=== PATIENT | male | born 1970 | race Caucasian/White ===

== ENCOUNTER 2025-02-19 16:01 | Observation (INO) ==
[2025-02-19] MEDS ORDERED: ULTRAM PO PRN (16:26)
[2025-02-19] MEDS ORDERED: MORPHINE SULFATE INJ 2 MG INJ IVP PRN (16:26)
[2025-02-19] MEDS ORDERED: NORCO 5/325 MG TAB PO PRN (16:26)
[2025-02-19] MEDS ORDERED: TYLENOL 325 MG TAB PO PRN (16:26)
[2025-02-19 20:52] LABS: MEAN PLATELET VOLUME 7.7 fL (7.4-11.0); RED CELL DISTRIBUTION WIDTH 13.4 % (11.6-16.5)
[2025-02-19 21:11] LABS: CREATININE 1.16 mg/dL (0.70-1.30); eGFR NON BLACK RACES > 60 (>60)
[2025-02-19] MEDS: VANCOMYCIN IV *PREMIX 1.75 G/350 ML BAG 1.75 G/350 ML PIGGYBACK IV ONE (21:54)
[2025-02-19 22:15] VITALS: BMI 25.0
[2025-02-20 05:44] LABS: MEAN PLATELET VOLUME 7.3 fL (7.4-11.0); RED CELL DISTRIBUTION WIDTH 13.4 % (11.6-16.5)
[2025-02-20 06:00] LABS: COR CA(FOR HYPOALB) 9.5 mg/dL (8.5-10.1); CREATININE 1.07 mg/dL (0.70-1.30); eGFR NON BLACK RACES > 60 (>60)
[2025-02-20] MEDS: VANCOMYCIN HCL 1 G in D5W 250 ML IV 250 ML IV SCH (10:00)
[2025-02-20] MEDS: COZAAR PO SCH (10:00)
--- NOTE | 2025-02-20 10:12 | DR.H&P ---
H&P History & Physical for Day of: H&P Date: 02/19/25 Chief Complaint Chief Complaint: right leg redness and swelling History of Present Illness History of Present Illness: Patient is a 54-year-old male with past medical history of hypertension presenting after failing outpatient treatment for cellulitis and abscess. He reports that boil appeared on his right leg on Monday and he was prescribed Bactrim and had received a Rocephin injection outpatient however symptoms did not improve. He denies fevers or chills. Reports having redness and pain on the skin with raised area that has some discharge. Labs/imaging: WBC 10.3, hemoglobin 16.8, platelets 296, sodium 139, potassium 4.2, creatinine 1.16, glucose 77. Patient was admitted with cellulitis and abscess of the right lower extremity. He was started on IV vancomycin. Wound cultures obtained. Will consult general surgery for further evaluation and likely I&D. Restart home medications. Otherwise continue with current treatment plan. Continue closely monitor and follow-up labs/imaging. Family History Family Medical History: Cancer Social History Alcohol Use: Occasionally Drug Use: None Medications Home Medications: Home Medications Medication Instructions Recorded Confirmed Type gabapentin 300 mg capsule 300 mg PO QPM 02/19/2502/19 History ibuprofen 800 mg tablet 800 mg PO Q8H PRN 02/19/25 1 04/22/24 History losartan 50 mg tablet 50 mg PO QDAY 02/19/2502/19 History Allergies Allergies Allergy/AdvReac Type Severity Reaction Status Date / Time Penicillins Allergy Verified 02/19/25 21:18 Labs 02/20/25 05:24 02/20/25 05:24 Labs: 02/19/25 20:52 Leg - Right Wound Gram Stain - Final Laboratory WBC 7.5 X10^3/uL (3.6-10.0) 02/20/25 05:24 RBC 4.64 X10^6/uL (4.7-6.0) L 02/20/25 05:24 Hgb 15.4 g/dL (13.5-18.0) 02/20/25 05:24 Hct 43.2 % (42.0-54.0) 02/20/25 05:24 MCV 93.1 fL (80.0-100.0) 02/20/25 05:24 MCH 33.2 pg (27.0-34.0) 02/20/25 05:24 MCHC 35.6 g/dL (33.0-35.0) H 02/20/25 05:24 RDW 13.4 % (11.6-16.5) 02/20/25 05:24 Plt Count 247 X10^3/uL (150.0-450.0) 02/20/25 05:24 MPV 7.3 fL (7.4-11.0) L 02/20/25 05:24 Neut % (Auto) 56.4 % (42.0-75.0) 02/20/25 05:24 Lymph % (Auto) 29.9 % (21.0-51.0) 02/20/25 05:24 [place] % (Auto) 10.4 % (0.0-13.0) 02/20/25 05:24 Eos % (Auto) 2.4 % (0.9-2.9) 02/20/25 05:24 Baso % (Auto) 0.9 % (0.2-1.0) 02/20/25 05:24 Neut # (Auto) 4.2 x10^3/uL (2.2-4.8) 02/20/25 05:24 Lymph # (Auto) 2.2 X10^3/uL (1.3-2.9) 02/20/25 05:24 [place] # (Auto) 0.8 x10^3/uL (0.3-0.8) 02/20/25 05:24 Eos # (Auto) 0.2 x10^3/uL (0.0-0.2) 02/20/25 05:24 Baso # (Auto) 0.1 X10^3/uL (0.0-0.1) 02/20/25 05:24 Absolute Nucleated RBC 0.0 /100WBC 02/20/25 05:24 Sodium 140 mmol/L (136-145) 02/20/25 05:24 Corrected Sodium TNP 02/20/25 05:24 Potassium 4.2 mmol/L (3.5-5.1) 02/20/25 05:24 Chloride 105 mmol/L (98-107) 02/20/25 05:24 Carbon Dioxide 27.6 mmol/L (21-32) 02/20/25 05:24 BUN 16 mg/dL (7-18) 02/20/25 05:24 Creatinine 1.07 mg/dL (0.70-1.30) 02/20/25 05:24 Est GFR (MDRD) Af Amer > 60 (>60) 02/20/25 05:24 Est GFR (MDRD) Non-Af > 60 (>60) 02/20/25 05:24 Glucose 93 mg/dL (65-99) 02/20/25 05:24 Calcium 8.7 mg/dL (8.5-10.1) 02/20/25 05:24 Corrected Calcium 9.5 mg/dL (8.5-10.1) 02/20/25 05:24 Total Bilirubin 0.60 mg/dL (0.2-1.0) 02/20/25 05:24 AST 23 Units/L (15-37) 02/20/25 05:24 ALT 26 Units/L (12-78) 02/20/25 05:24 Alkaline Phosphatase 71 Units/L (46-116) 02/20/25 05:24 Total Protein 6.4 g/dL (6.4-8.2) 02/20/25 05:24 Albumin 3.0 g/dL (3.4-5.0) L 02/20/25 05:24 Globulin 3.4 g/dL (2.5-4.5) 02/20/25 05:24 Albumin/Globulin Ratio 0.9 Ratio (1.1-2.1) L 02/20/25 05:24 Review of Systems Constitutional: No Symptoms Reported Eyes: No Symptoms Reported ENT: No Symptoms Reported Respiratory: No Symptoms Reported Cardiovascular: No Symptoms Reported Gastrointestinal: No Symptoms Reported Genitourinary: No Symptoms Reported Musculoskeletal: No Symptoms Reported Skin: Other (abscess RLE) Neurological: No Symptoms Reported Physical Exam Vital Signs: Vital Signs Temperature 97.7 F Temperature 97.6 F Pulse Rate [Left Radial] 61 Pulse Rate [Left Radial] 60 Respiratory Rate 18 Respiratory Rate 16 Blood Pressure [Left Arm] 117/71 Blood Pressure [Left Arm] 109/68 O2 Sat by Pulse Oximetry 96 O2 Sat by Pulse Oximetry 97 Oriented: Normal Eyes: Normal Ear: Normal Nose: Normal Throat: Normal Respiratory: Clear Throughout Cardiovascular: Normal : Normal Auscultation: Bowel Sounds: Normal Palpation: Normal Tenderness: Normal Skin: Red (abscess with surrounding erythema RLE) Musculoskeletal: Normal Psychiatric: Normal Mood Description: Calm and Appropriate Affect: Normal Speech Pattern: Clear and Appropriate Assessment/Plan (1) Cellulitis and abscess of right leg: Status: Acute Plan: consult general surgery IV antibiotics Follow wound cultures Review H&P Reviewed: Yes Patient was examined?: Yes
--- NOTE | 2025-02-20 10:15 | PCM.PROG ---
Progress Note Progress Note for Day of Date of Exam: 02/20/25 Subjective Subjective: Patient is a 54-year-old male with past medical history of hypertension admitted for cellulitis and abscess of right lower extremity after failing outpatient treatment. This morning he is resting in bed. No acute events overnight. General surgery did see him this morning and plan to perform an I&D. Labs/imaging: WBC 7.5, hemoglobin 15.4, platelets 247, sodium 140, potassium 4.2, creatinine 1.07, glucose 93. Will continue with IV vancomycin. Wound cultures pending. Follow general surgery recommendations. Home medications have been resumed. Otherwise continue with current treatment plan. Continue closely monitor and follow-up labs/imaging. Past Medical Family Social History Allergies: Allergies Penicillins Allergy (Verified 02/19/25 21:18) Review of Systems ROS changes noted: see HPI Vital Signs and I&O's Vital Signs: Vital Signs Temperature 97.7 F Temperature 97.6 F Pulse Rate [Left Radial] 61 Pulse Rate [Left Radial] 60 Respiratory Rate 18 Respiratory Rate 16 Blood Pressure [Left Arm] 117/71 Blood Pressure [Left Arm] 109/68 O2 Sat by Pulse Oximetry 96 O2 Sat by Pulse Oximetry 97 Intake and Output: Intake & Output 02/17/25 02/18/25 02/19/25 02/20/25 23:59 23:59 23:59 23:59 Intake Total 0 / 0 0 / 0 Balance 0 / 0 0 / 0 Physical Exam Oriented: Normal Eyes: Normal Ear: Normal Nose: Normal Throat: Normal Respiratory: Normal Cardiovascular: Normal : Normal Auscultation: Bowel Sounds: Normal Tenderness: Normal Skin: Red (abscess with surrounding erythema RLE) Musculoskeletal: Normal Psychiatric: Normal Mood Description: Calm and Appropriate Affect: Normal Speech Pattern: Clear and Appropriate Laboratory and Diagnostics 02/20/25 05:24 02/20/25 05:24 Labs: 02/19/25 20:52 Leg - Right Wound Gram Stain - Final Laboratory WBC 7.5 X10^3/uL (3.6-10.0) 02/20/25 05:24 RBC 4.64 X10^6/uL (4.7-6.0) L 02/20/25 05:24 Hgb 15.4 g/dL (13.5-18.0) 02/20/25 05:24 Hct 43.2 % (42.0-54.0) 02/20/25 05:24 MCV 93.1 fL (80.0-100.0) 02/20/25 05:24 MCH 33.2 pg (27.0-34.0) 02/20/25 05:24 MCHC 35.6 g/dL (33.0-35.0) H 02/20/25 05:24 RDW 13.4 % (11.6-16.5) 02/20/25 05:24 Plt Count 247 X10^3/uL (150.0-450.0) 02/20/25 05:24 MPV 7.3 fL (7.4-11.0) L 02/20/25 05:24 Neut % (Auto) 56.4 % (42.0-75.0) 02/20/25 05:24 Lymph % (Auto) 29.9 % (21.0-51.0) 02/20/25 05:24 [place] % (Auto) 10.4 % (0.0-13.0) 02/20/25 05:24 Eos % (Auto) 2.4 % (0.9-2.9) 02/20/25 05:24 Baso % (Auto) 0.9 % (0.2-1.0) 02/20/25 05:24 Neut # (Auto) 4.2 x10^3/uL (2.2-4.8) 02/20/25 05:24 Lymph # (Auto) 2.2 X10^3/uL (1.3-2.9) 02/20/25 05:24 [place] # (Auto) 0.8 x10^3/uL (0.3-0.8) 02/20/25 05:24 Eos # (Auto) 0.2 x10^3/uL (0.0-0.2) 02/20/25 05:24 Baso # (Auto) 0.1 X10^3/uL (0.0-0.1) 02/20/25 05:24 Absolute Nucleated RBC 0.0 /100WBC 02/20/25 05:24 Sodium 140 mmol/L (136-145) 02/20/25 05:24 Corrected Sodium TNP 02/20/25 05:24 Potassium 4.2 mmol/L (3.5-5.1) 02/20/25 05:24 Chloride 105 mmol/L (98-107) 02/20/25 05:24 Carbon Dioxide 27.6 mmol/L (21-32) 02/20/25 05:24 BUN 16 mg/dL (7-18) 02/20/25 05:24 Creatinine 1.07 mg/dL (0.70-1.30) 02/20/25 05:24 Est GFR (MDRD) Af Amer > 60 (>60) 02/20/25 05:24 Est GFR (MDRD) Non-Af > 60 (>60) 02/20/25 05:24 Glucose 93 mg/dL (65-99) 02/20/25 05:24 Calcium 8.7 mg/dL (8.5-10.1) 02/20/25 05:24 Corrected Calcium 9.5 mg/dL (8.5-10.1) 02/20/25 05:24 Total Bilirubin 0.60 mg/dL (0.2-1.0) 02/20/25 05:24 AST 23 Units/L (15-37) 02/20/25 05:24 ALT 26 Units/L (12-78) 02/20/25 05:24 Alkaline Phosphatase 71 Units/L (46-116) 02/20/25 05:24 Total Protein 6.4 g/dL (6.4-8.2) 02/20/25 05:24 Albumin 3.0 g/dL (3.4-5.0) L 02/20/25 05:24 Globulin 3.4 g/dL (2.5-4.5) 02/20/25 05:24 Albumin/Globulin Ratio 0.9 Ratio (1.1-2.1) L 02/20/25 05:24 Plan (1) Cellulitis and abscess of right leg: Status: Acute Plan: consult general surgery IV antibiotics Follow wound cultures
[2025-02-20] MEDS: XYLOCAINE 1 % (PLAIN) ONE (13:38)
[2025-02-20] MEDS: CONSULT PHARMACY - POTASSIUM & MAGNESIUM XX SCH (20:50)
[2025-02-20] MEDS: NEURONTIN CAP 300 MG PO SCH (20:56)
[2025-02-21 05:06] LABS: MEAN PLATELET VOLUME 7.3 fL (7.4-11.0); RED CELL DISTRIBUTION WIDTH 13.4 % (11.6-16.5)
[2025-02-21 05:17] LABS: COR CA(FOR HYPOALB) 9.8 mg/dL (8.5-10.1); CREATININE 1.09 mg/dL (0.70-1.30); eGFR NON BLACK RACES > 60 (>60)
[2025-02-21] MEDS ORDERED: HYDROGEN PEROXIDE 3% ONE (16:41)
[2025-02-21 20:45] LABS: CREATININE 1.01 mg/dL (0.70-1.30)
[2025-02-21] MEDS: PHARMACY COMMENT IV NR (21:26)
[2025-02-22 11:32] VITALS: BP 114/75; PULSE 62; RESP 16; TEMP 97.6; O2SAT 97
--- NOTE | 2025-02-24 09:43 | W.DIS.FURT ---
Summary of Discharge Discharge Summary of Date Date of Exam: 02/22/25 Admission Date Date of Admission: 02/20/25 Admission Diagnosis Hospital Course: Patient is a 54-year-old male with past medical history of hypertension presenting after failing outpatient treatment for cellulitis and abscess. He reports that boil appeared on his right leg on Monday and he was prescribed Bactrim and had received a Rocephin injection outpatient however symptoms did not improve. He denies fevers or chills. He reports having redness and pain on the skin with raised area that has some discharge. He was directly admitted for further evaluation. Labs showed WBC 10.3, hemoglobin 16.8, platelets 296, sodium 139, potassium 4.2, creatinine 1.16, glucose 77. Patient was admitted with cellulitis and abscess of the right lower extremity. He was started on IV vancomycin. Wound cultures obtained. Gen surgery was consulted for I&D. Patient did well and redness improved. His labs were monitored daily and electrolytes replaced as needed. He was stable for discharge home on PO antibiotics. He will f/u with PCP and Dr Ellison as scheduled. Vital Signs: Vital Signs (72 hours) 02/19/25 20:00 02/19/25 20:45 02/20/25 00:00 Temperature 98.2 F 97.7 F Pulse Rate [Left Radial] 63 62 Respiratory Rate 20 16 Blood Pressure [Left Arm] 140/84 122/78 O2 Sat by Pulse Oximetry 97 97 Oxygen Delivery Method Room Air Room Air 02/20/25 04:00 02/20/25 07:00 02/20/25 08:00 Temperature 97.6 F 97.7 F Pulse Rate [Left Radial] 60 61 Respiratory Rate 16 18 Blood Pressure [Left Arm] 109/68 117/71 O2 Sat by Pulse Oximetry 97 96 Oxygen Delivery Method Room Air 02/20/25 11:39 02/20/25 16:00 02/20/25 19:00 Temperature 98.0 F 98.5 F Pulse Rate [Left Radial] 58 L 77 Respiratory Rate 18 17 Blood Pressure [Left Arm] 115/76 120/76 O2 Sat by Pulse Oximetry 96 97 Oxygen Delivery Method Room Air 02/20/25 20:00 02/21/25 00:00 02/21/25 04:00 Temperature 97.7 F 98.3 F 97.7 F Pulse Rate [Left Radial] 84 81 61 Respiratory Rate 20 20 16 Blood Pressure [Left Arm] 124/84 110/65 112/71 O2 Sat by Pulse Oximetry 95 96 97 Oxygen Delivery Method 02/21/25 07:00 02/21/25 08:00 02/21/25 12:00 Temperature 97.8 F 97.7 F Pulse Rate [Left Radial] 67 74 Respiratory Rate 17 18 Blood Pressure [Left Arm] 117/63 110/68 O2 Sat by Pulse Oximetry 96 96 Oxygen Delivery Method Room Air 02/21/25 15:52 02/21/25 19:00 02/21/25 20:00 Temperature 97.8 F 98.1 F Pulse Rate [Left Radial] 68 84 Respiratory Rate 18 18 Blood Pressure [Left Arm] 130/85 157/83 O2 Sat by Pulse Oximetry 95 95 Oxygen Delivery Method Room Air 02/22/25 00:00 02/22/25 04:00 Temperature 97.8 F 97.9 F Pulse Rate [Left Radial] 78 74 Respiratory Rate 18 18 Blood Pressure [Left Arm] 122/76 119/70 O2 Sat by Pulse Oximetry 96 96 Oxygen Delivery Method Labs: Laboratory Last Values WBC 7.6 X10^3/uL (3.6-10.0) 02/21/25 04:35 RBC 4.90 X10^6/uL (4.7-6.0) 02/21/25 04:35 Hgb 16.3 g/dL (13.5-18.0) 02/21/25 04:35 Hct 45.7 % (42.0-54.0) 02/21/25 04:35 MCV 93.2 fL (80.0-100.0) 02/21/25 04:35 MCH 33.3 pg (27.0-34.0) 02/21/25 04:35 MCHC 35.8 g/dL (33.0-35.0) H 02/21/25 04:35 RDW 13.4 % (11.6-16.5) 02/21/25 04:35 Plt Count 278 X10^3/uL (150.0-450.0) 02/21/25 04:35 MPV 7.3 fL (7.4-11.0) L 02/21/25 04:35 Neut % (Auto) 58.3 % (42.0-75.0) 02/21/25 04:35 Lymph % (Auto) 27.4 % (21.0-51.0) 02/21/25 04:35 [place] % (Auto) 11.4 % (0.0-13.0) 02/21/25 04:35 Eos % (Auto) 2.1 % (0.9-2.9) 02/21/25 04:35 Baso % (Auto) 0.8 % (0.2-1.0) 02/21/25 04:35 Neut # (Auto) 4.4 x10^3/uL (2.2-4.8) 02/21/25 04:35 Lymph # (Auto) 2.1 X10^3/uL (1.3-2.9) 02/21/25 04:35 [place] # (Auto) 0.9 x10^3/uL (0.3-0.8) H 02/21/25 04:35 Eos # (Auto) 0.2 x10^3/uL (0.0-0.2) 02/21/25 04:35 Baso # (Auto) 0.1 X10^3/uL (0.0-0.1) 02/21/25 04:35 Absolute Nucleated RBC 0.1 /100WBC 02/21/25 04:35 Sodium 139 mmol/L (136-145) 02/21/25 04:35 Corrected Sodium TNP 02/21/25 04:35 Potassium 4.1 mmol/L (3.5-5.1) 02/21/25 04:35 Chloride 105 mmol/L (98-107) 02/21/25 04:35 Carbon Dioxide 27.6 mmol/L (21-32) 02/21/25 04:35 BUN 18 mg/dL (7-18) 02/21/25 04:35 Creatinine 1.01 mg/dL (0.70-1.30) 02/21/25 20:16 Est GFR (MDRD) Af Amer > 60 (>60) 02/21/25 04:35 Est GFR (MDRD) Non-Af > 60 (>60) 02/21/25 04:35 Glucose 107 mg/dL (65-99) H 02/21/25 04:35 Calcium 9.1 mg/dL (8.5-10.1) 02/21/25 04:35 Corrected Calcium 9.8 mg/dL (8.5-10.1) 02/21/25 04:35 Total Bilirubin 0.40 mg/dL (0.2-1.0) 02/21/25 04:35 AST 19 Units/L (15-37) 02/21/25 04:35 ALT 25 Units/L (12-78) 02/21/25 04:35 Alkaline Phosphatase 74 Units/L (46-116) 02/21/25 04:35 Total Protein 6.7 g/dL (6.4-8.2) 02/21/25 04:35 Albumin 3.1 g/dL (3.4-5.0) L 02/21/25 04:35 Globulin 3.6 g/dL (2.5-4.5) 02/21/25 04:35 Albumin/Globulin Ratio 0.9 Ratio (1.1-2.1) L 02/21/25 04:35 Vancomycin Trough 11.2 ug/mL (15-20) L 02/21/25 20:16 Reason For Visit: CELLULITES, FAILED OUT PT TX Discharge Diagnosis All Active Problems (Updated 02/20/25 @ 10:11 by Ernie Parish MD) Cellulitis and abscess of right leg (Acute) Plan of Treatment: Continue with present treatment and follow up plan. Pt is to keep follow up appointment as instructed and take medications as ordered. Discharge Medications Discharge Medications: Penicillins Allergy (Verified 02/19/25 21:18) CONTINUE taking the following medications gabapentin 300 mg capsule 300 mg PO QPM 02/19/25 [History] ibuprofen 800 mg tablet 800 mg PO Q8H PRN 02/19/25 [History] losartan 50 mg tablet 50 mg PO QDAY 02/19/25 [History] New Prescriptions clindamycin HCl 300 mg capsule 300 mg PO Q8H 10 days #30 caps 02/21/25 [Rx] sulfamethoxazole 800 mg-trimethoprim 160 mg tablet 1 tab PO BID 10 days #20 tabs 02/21/25 [Rx] Discharge Disposition Assessment: No distress noted. Discharge Disposition: home Discharge Condition: stable Discharge Plan Discharge Plan Hospital Course: Patient is a 54-year-old male with past medical history of hypertension presenting after failing outpatient treatment for cellulitis and abscess. He reports that boil appeared on his right leg on Monday and he was prescribed Bactrim and had received a Rocephin injection outpatient however symptoms did not improve. He denies fevers or chills. He reports having redness and pain on the skin with raised area that has some discharge. He was directly admitted for further evaluation. Labs showed WBC 10.3, hemoglobin 16.8, platelets 296, sodium 139, potassium 4.2, creatinine 1.16, glucose 77. Patient was admitted with cellulitis and abscess of the right lower extremity. He was started on IV vancomycin. Wound cultures obtained. Gen surgery was consulted for I&D. Patient did well and redness improved. His labs were monitored daily and electrolytes replaced as needed. He was stable for discharge home on PO antibiotics. He will f/u with PCP and Dr Ellison as scheduled. Patient Disposition: 01 HOME, SELF-CARE Condition: Stable Health Concerns: Post Hospitalization: new medications and changes needed to prevent readmission or further decline. Pt educated and given instructions on all concerns. Care Plan Goals: Problem: Infection Goal: Temperature within normal limits. Resolved infection. Instructions: Follow provided instructions. Follow up with primary physician as directed. Contact primary care physician or report to the closest Emergency Room if condition worsens. Plan of Treatment: Continue with present treatment and follow up plan. Pt is to keep follow up appointment as instructed and take medications as ordered. Assessment: No distress noted. Prescription drug monitoring program results: PDMP reviewed and no concerns identified Prescriptions: New clindamycin HCl 300 mg Capsule 300 mg PO Q8H 10 Days Qty: 30 0RF sulfamethoxazole-trimethoprim 800-160 mg Tablet 1 tab PO BID 10 Days Qty: 20 0RF Continued losartan 50 mg tablet 50 mg PO QDAY ibuprofen 800 mg tablet 800 mg PO Q8H PRN gabapentin 300 mg capsule 300 mg PO QPM Orders to Discharge Patient Discharge Orders: Discharge (Routine); Ordered 02/22/25 Ordered By: Karyn Lee Follow ups/Referrals Follow ups/Referrals: Klaudia Damico [Nurse Practitioner, Unknown] - 02/26/25 1:40 pm HERIBERTO GREEN [STAFF PHYSICIAN, MEDICAL] - 03/04/25 2:00 pm Instructions Instructions: Clindamycin capsules, Cellulitis, Adult, [id number], Incision and Drainage, Care After, Sulfamethoxazole; Trimethoprim, SMX-TMP tablets Stand Alone Forms: Excuse From Work or School, Find Help Web Site, Post Hospital Follow Up Care Print Language: EMIRATI
== END 2025-02-22 13:40 | disposition home or self-care (01) ==
LOC: MED/SURG
PROVIDERS: ADMIT Internal Medicine; ATTEND Internal Medicine
DX: Z16.29 Resistance to other single specified antibiotic; B96.89 Other specified bacterial agents as the cause of diseases classified elsewhere; Z16.12 Extended spectrum beta lactamase (ESBL) resistance; Z79.899 Other long term (current) drug therapy; L02.415 Cutaneous abscess of right lower limb; Z16.23 Resistance to quinolones and fluoroquinolones; I10 Essential (primary) hypertension; L03.115 Cellulitis of right lower limb; B95.62 Methicillin resistant Staphylococcus aureus infection as the cause of diseases classified elsewhere